=== PATIENT | male | born 1995 | race African-American/Black ===

== ENCOUNTER 2017-01-14 23:50 | Emergency (ER) | payer OTHER ==
[~2017-01-14 23:50] MED LIST: DIAZEPAM10 MG PO; LAMICTAL150 MG PO; VIMPAT200 MG PO
== END 2017-01-15 00:39 | disposition home or self-care (01) ==
LOC: SED 23:50
DX: S00.531A Contusion of lip, initial encounter (principal); L08.9 Local infection of the skin and subcutaneous tissue, unspecified; G40.909 Epilepsy, unspecified, not intractable, without status epilepticus; Z79.899 Other long term (current) drug therapy; X58.XXXA Exposure to other specified factors, initial encounter
CPT/HCPCS: 99283